=== PATIENT | male | born 1985 | race Caucasian/White ===

== ENCOUNTER 2017-07-19 16:41 | Emergency (ER) | payer SELFPAY ==
[~2017-07-19] VITALS: Ht 170.2 cm; Wt 94.9 kg
[~2017-07-19 16:41] MED LIST: AMOXICILLIN500 MG PO; BACTRIM DS1 TAB PO; CELEXA20 MG PO; CEPHALEXIN500 MG PO; DOXYCYCL HYC100 M4 PO; KLONOPIN1 MG PO; LITHIUM CARB300 MG PO; LORTAB 10 PO; NAPROXEN375 MG PO; NO; ULTRAM50 MG OR; ZOFRAN4 MG/TAB PO
[2017-07-19 17:40] LABS: HEMATOCRIT 47.9 % (39.0-50.0); HEMOGLOBIN 16.4 g/dl (14.0-18.0); IMMATURE GRANULOCYTES 0.5 % (0.0-1.0); MEAN CELL VOLUME 87.2 fL CALC (80.0-100.0); MEAN CORPUSCULAR HGB 29.9 pG CALC (26.0-32.0); MEAN CORPUSCULAR HGB CONC 34.2 g/L CALC (32.0-36.0); NEUT# 7.68 thou/uL (1.82-7.42); RED BLOOD COUNT 5.49 mill/uL (4.70-6.10); RED CELL DISTRI WIDTH 12.4 % (11.5-15.5)
[2017-07-19 17:51] LABS: ALBUMIN 4.5 g/dL (3.2-5.0); ALKALINE PHOSPHATASE 57 u/l (38-126); ANION GAP 18 (6-22 (CALC)); BILIRUBIN, TOTAL 0.9 mg/dL (0.0-1.4); BUN 22 mg/dL (9-20); BUN/CREATININE RATIO 23 (12-20 (CALC)); CALCIUM 9.4 mg/dL (8.4-10.2); CARBON DIOXIDE 22 mmol/l (22-30); CHLORIDE 103 mmol/l (95-108); GFR > 60 ML/MIN (>=60 (CALC)); GFR FOR AFR.AMER. > 60 ML/MIN (>=60 (CALC)); GLUCOSE 84 mg/dL (75-110); POTASSIUM 4.1 mmol/l (3.5-5.1); SGOT/AST 31 u/l (17-59); SGPT/ALT 54 u/l (21-72); SODIUM 139 mmol/l (137-146)
[2017-07-19] MEDS ORDERED: BENTYL20 MG PO (18:12)
[2017-07-19] MEDS ORDERED: ZOFRAN4 MG/TAB PO (18:12)
[2017-07-19 18:32] VITALS: BP 116/64
== END 2017-07-19 18:32 | disposition home or self-care (01) | DRG 392 ==
LOC: ED 16:41
PROVIDERS: Emergency Medicine
DX: K52.9 Noninfective gastroenteritis and colitis, unspecified (principal); R10.84 Generalized abdominal pain; R11.2 Nausea with vomiting, unspecified; R50.9 Fever, unspecified

== ENCOUNTER 2017-09-18 17:21 | Emergency (ER) | payer MEDICAID ==
[~2017-09-18] VITALS: Ht 170.2 cm; Wt 94.8 kg
[~2017-09-18 17:21] MED LIST changes: +BENTYL20 MG PO
[2017-09-18] MEDS ORDERED: ORPHENADRINE100 MG PO (20:14)
[2017-09-18] MEDS ORDERED: ULTRAM50 M1 PO (20:14)
[2017-09-18 20:38] VITALS: BP 128/82
== END 2017-09-18 20:37 | disposition home or self-care (01) | DRG 563 ==
LOC: ED 17:21
DX: S39.012A Strain of muscle, fascia and tendon of lower back, initial encounter (principal); F17.220 Nicotine dependence, chewing tobacco, uncomplicated; X50.0XXA Overexertion from strenuous movement or load, initial encounter

== ENCOUNTER 2018-03-30 19:36 | Emergency (ER) | payer SELFPAY ==
[~2018-03-30] VITALS: Ht 170.2 cm; Wt 75.2 kg
[~2018-03-30 19:36] MED LIST changes: +ORPHENADRINE100 MG PO; +ULTRAM50 M1 PO
[2018-03-30 20:32] LABS: HEMATOCRIT 46.1 % (39.0-50.0); HEMOGLOBIN 15.5 g/dl (14.0-18.0); IMMATURE GRANULOCYTES 0.4 % (0.0-5.0); MEAN CELL VOLUME 86.7 fL CALC (80.0-100.0); MEAN CORPUSCULAR HGB 29.1 pG CALC (26.0-32.0); MEAN CORPUSCULAR HGB CONC 33.6 g/L CALC (32.0-36.0); NEUT# 10.53 thou/uL (1.82-7.42); RED BLOOD COUNT 5.32 mill/uL (4.70-6.10); RED CELL DISTRI WIDTH 13.2 % (11.5-15.5)
[2018-03-30 20:42] LABS: ALBUMIN 4.7 g/dL (3.2-5.0); ALKALINE PHOSPHATASE 82 u/l (38-126); ANION GAP 18 (6-22 (CALC)); BILIRUBIN, TOTAL 0.7 mg/dL (0.0-1.4); BUN 18 mg/dL (9-20); BUN/CREATININE RATIO 15 (12-20 (CALC)); CARBON DIOXIDE 27 mmol/l (22-30); CHLORIDE 104 mmol/l (95-108); CREATININE 1.2 mg/dL (0.7-1.3); ETHYL ALCOHOL 0 mg/dl (0-30); GFR > 60 ML/MIN (>=60 (CALC)); GFR FOR AFR.AMER. > 60 ML/MIN (>=60 (CALC)); POTASSIUM 3.7 mmol/l (3.5-5.1); SGOT/AST 28 u/l (17-59); SGPT/ALT 32 u/l (21-72); SODIUM 145 mmol/l (137-146); TOTAL PROTEIN 7.9 g/dL (6.3-8.2)
[2018-03-30 20:54] LABS: MYOGLOBIN 144 ng/mL (0 - 121)
[2018-03-30 23:08] LABS: URINE BILIRUBIN - DIPSTICK NEGATIVE (NEGATIVE); URINE BLOOD DIPSTICK NEGATIVE (NEGATIVE); URINE COLOR YELLOW; URINE GLUCOSE - DIPSTICK NEGATIVE (NEGATIVE); URINE KETONE NEGATIVE (NEGATIVE); URINE LEUK ESTERASE NEGATIVE (NEGATIVE); URINE NITRITE - DIPSTICK NEGATIVE (Negative); URINE PROTEIN - DIPSTICK TRACE mg/dL (NEG-TRACE); URINE SPECIFIC GRAVITY >=1.030; URINE UROBILINOGEN - DIPSTICK 0.2 E.U./dL (0.2)
[2018-03-30 23:11] LABS: COCAINE NEGATIVE (NEGATIVE); TETRAHYDROCANNABIONOL NEGATIVE (NEGATIVE); URINE CLARITY CLEAR
[2018-03-30 23:12] LABS: BARBITURATES NEGATIVE (NEGATIVE); METHADONE NEGATIVE (NEGATIVE); OXCYCODONE NEGATIVE (NEGATIVE); TRICYLIC ANTIDEPRESSANTS NEGATIVE (NEGATIVE)
[2018-03-31 01:39] LABS: MYOGLOBIN 124 ng/mL (0 - 121)
[2018-03-31 02:40] VITALS: BP 137/78
== END 2018-03-31 02:40 | disposition designated cancer center or children's hospital (05) | DRG 885 ==
LOC: ED 19:36
PROVIDERS: Emergency Medicine
DX: F29 Unspecified psychosis not due to a substance or known physiological condition (principal); F19.10 Other psychoactive substance abuse, uncomplicated; F20.0 Paranoid schizophrenia; F17.210 Nicotine dependence, cigarettes, uncomplicated; Z91.14 Patient's other noncompliance with medication regimen
CPT/HCPCS: J2060

== ENCOUNTER 2018-03-31 06:37 | Emergency (ER) | payer SELFPAY ==
[~2018-03-31] VITALS: Ht 170.2 cm; Wt 85.0 kg
--- NOTE | 2018-03-31 07:54 | NUR ---
CM received a call from ED staff regarding the patient under the [employer] Act and the need for CM assistance in placement to [facility]. CM advised a call will go out to [facility] to ascertain acceptance.
--- NOTE | 2018-03-31 09:02 | NUR ---
LADONNA placed a call to [facility] Wilton Sanchez regarding the current issue. advised she will speak with her Director of [facility] Geeta and investigate and call back. LADONNA provided the direct office number [phone] and personal cell [phone] for the call back. LADONNA further advised that [facility] is on the hook for the transport fee from [facility] and that [facility] should be responsible for the charge. Mrs. Sanchez stated they will pay the bill should her investigation determine that [facility] made the mistake. LADONNA reiterated the agreement that came into force in June 2017 and has been followed since that time. LADONNA voiced appreciation for her time and ended the call. Nursing for the ED made aware.
[2018-03-31 09:52] VITALS: BP 140/91
== END 2018-03-31 09:52 | disposition designated cancer center or children's hospital (05) | DRG 897 ==
LOC: ED 06:37
DX: F15.10 Other stimulant abuse, uncomplicated (principal); F20.0 Paranoid schizophrenia; F17.210 Nicotine dependence, cigarettes, uncomplicated

== ENCOUNTER 2021-04-17 05:44 | Emergency (ER) | payer SELFPAY ==
[~2021-04-17] VITALS: Ht 170.2 cm; Wt 81.0 kg
[2021-04-17 06:47] LABS: URINE BILIRUBIN - DIPSTICK NEGATIVE (NEGATIVE); URINE BLOOD DIPSTICK NEGATIVE (NEGATIVE); URINE COLOR YELLOW; URINE GLUCOSE - DIPSTICK NEGATIVE (NEGATIVE); URINE KETONE NEGATIVE (NEGATIVE); URINE LEUK ESTERASE NEGATIVE (NEGATIVE); URINE PH 6.5 (4.5-8.0); URINE PROTEIN - DIPSTICK NEGATIVE (NEG-TRACE); URINE SPECIFIC GRAVITY <=1.005; URINE UROBILINOGEN - DIPSTICK 0.2 E.U./dL (0.2)
[2021-04-17 06:48] LABS: URINE NITRITE - DIPSTICK POSITIVE (Negative)
[2021-04-17 06:57] LABS: URINE BACTERIA FEW hpf; URINE RBC 0-2 RBC/hpf (0-5); URINE SQUAMOUS EPITHELIAL CELL FEW EPI/hpf (0-FEW)
[2021-04-17 07:32] LABS: HEMATOCRIT 49.4 % (39.0-50.0); HEMOGLOBIN 16.1 g/dl (14.0-18.0); IMMATURE GRANULOCYTES 0.6 % (0.0-5.0); MEAN CORPUSCULAR HGB CONC 32.6 g/dL CAL (32.0-36.0); NEUT# 8.41 thou/uL (1.82-7.42); RED BLOOD COUNT 5.37 mill/uL (4.70-6.10); RED CELL DISTRI WIDTH 12.3 % (11.5-15.5)
[2021-04-17 07:57] LABS: ALBUMIN 4.8 g/dL (3.2-5.0); ALKALINE PHOSPHATASE 76 u/l (38-126); AMYLASE 35 u/l (30-110); BUN 16 mg/dL (9-20); BUN/CREATININE RATIO 18 (12-20 (CALC)); CARBON DIOXIDE 24 mmol/l (22-30); CHLORIDE 99 mmol/l (95-108); CREATININE 0.9 mg/dL (0.7-1.3); GFR > 60 ML/MIN (>=60 (CALC)); GFR FOR AFR.AMER. > 60 ML/MIN (>=60 (CALC)); LIPASE 107 u/l (23-300); SGOT/AST 29 u/l (17-59); TOTAL PROTEIN 7.8 g/dL (6.3-8.2)
[2021-04-17 07:59] LABS: ANION GAP 17 (6-22 (CALC)); SODIUM 136 mmol/l (137-146)
[2021-04-17 08:51] VITALS: BP 123/79
== END 2021-04-17 09:02 | disposition home or self-care (01) | DRG 392 ==
LOC: ED 05:44
PROVIDERS: Family Medicine
DX: R10.84 Generalized abdominal pain (principal); F20.0 Paranoid schizophrenia; F32.9 Major depressive disorder, single episode, unspecified; F17.210 Nicotine dependence, cigarettes, uncomplicated; T43.506A Underdosing of unspecified antipsychotics and neuroleptics, initial encounter; T43.206A Underdosing of unspecified antidepressants, initial encounter; Z91.128 Patient's intentional underdosing of medication regimen for other reason; Z77.123 Contact with and (suspected) exposure to radon and other naturally occurring radiation

== ENCOUNTER 2021-06-25 16:45 | Emergency (ER) | payer SELFPAY ==
[~2021-06-25] VITALS: Ht 170.2 cm; Wt 81.8 kg
[2021-06-25] MEDS ORDERED: NAPROXEN500 MG PO (17:27)
[2021-06-25 18:21] VITALS: BP 137/84
== END 2021-06-25 18:17 | disposition home or self-care (01) | DRG 605 ==
LOC: ED 16:45
DX: S60.221A Contusion of right hand, initial encounter (principal); F17.210 Nicotine dependence, cigarettes, uncomplicated; Y04.0XXA Assault by unarmed brawl or fight, initial encounter; Y92.149 Unspecified place in prison as the place of occurrence of the external cause

== ENCOUNTER 2021-08-29 21:26 | Emergency (ER) | payer SELFPAY ==
[~2021-08-29] VITALS: Ht 177.8 cm; Wt 72.0 kg
[~2021-08-29 21:26] MED LIST changes: +NAPROXEN500 MG PO
[2021-08-29 21:58] LABS: HEMATOCRIT 47.6 % (39.0-50.0); IMMATURE GRANULOCYTES 0.2 % (0.0-5.0); MEAN CELL VOLUME 89.6 fL CALC (80.0-100.0); MEAN CORPUSCULAR HGB 30.1 pG CALC (26.0-32.0); MEAN CORPUSCULAR HGB CONC 33.6 g/dL CAL (32.0-36.0); NEUT# 3.44 thou/uL (1.82-7.42); RED BLOOD COUNT 5.31 mill/uL (4.70-6.10); RED CELL DISTRI WIDTH 11.9 % (11.5-15.5)
[2021-08-29 22:14] LABS: ALBUMIN 4.6 g/dL (3.2-5.0); ALKALINE PHOSPHATASE 58 u/l (38-126); BILIRUBIN, TOTAL 0.6 mg/dL (0.0-1.4); BUN 18 mg/dL (9-20); BUN/CREATININE RATIO 23 (12-20 (CALC)); CHLORIDE 101 mmol/l (95-108); CREATININE 0.8 mg/dL (0.7-1.3); GFR > 60 ML/MIN (>=60 (CALC)); GFR FOR AFR.AMER. > 60 ML/MIN (>=60 (CALC)); POTASSIUM 3.6 mmol/l (3.5-5.1); SGOT/AST 33 u/l (17-59); SODIUM 140 mmol/l (137-146); TOTAL PROTEIN 7.7 g/dL (6.3-8.2)
[2021-08-29 22:15] LABS: ANION GAP 13 (6-22 (CALC)); CARBON DIOXIDE 30 mmol/l (22-30)
[2021-08-30 00:19] LABS: URINE BILIRUBIN - DIPSTICK NEGATIVE (NEGATIVE); URINE BLOOD DIPSTICK NEGATIVE (NEGATIVE); URINE COLOR YELLOW; URINE GLUCOSE - DIPSTICK NEGATIVE (NEGATIVE); URINE KETONE NEGATIVE (NEGATIVE); URINE LEUK ESTERASE NEGATIVE (NEGATIVE); URINE PROTEIN - DIPSTICK 30 mg/dL (NEG-TRACE); URINE SPECIFIC GRAVITY 1.025; URINE UROBILINOGEN - DIPSTICK 0.2 E.U./dL (0.2)
[2021-08-30 00:20] LABS: URINE NITRITE - DIPSTICK NEGATIVE (Negative)
[2021-08-30 00:23] LABS: URINE BACTERIA FEW hpf; URINE EPITHELIAL CELLS FEW EPI/hpf (0-FEW); URINE RBC 0-2 RBC/hpf (0-5)
[2021-08-30 08:07] VITALS: BP 136/81
== END 2021-08-30 08:07 | disposition home or self-care (01) | DRG 880 ==
LOC: ED 21:26
PROVIDERS: Emergency Medicine
DX: F41.9 Anxiety disorder, unspecified (principal); F19.10 Other psychoactive substance abuse, uncomplicated; F20.0 Paranoid schizophrenia; F17.200 Nicotine dependence, unspecified, uncomplicated

== ENCOUNTER 2021-12-20 01:48 | Emergency (ER) | payer SELFPAY ==
[~2021-12-20] VITALS: Ht 25.4 cm; Wt 72.7 kg
[2021-12-20 02:30] LABS: IMMATURE GRANULOCYTES 0.3 % (0.0-5.0); MEAN CELL VOLUME 90.1 fL CALC (80.0-100.0); MEAN CORPUSCULAR HGB 30.7 pG CALC (26.0-32.0); MEAN CORPUSCULAR HGB CONC 34.1 g/dL CAL (32.0-36.0); NEUT# 4.41 thou/uL (1.82-7.42); RED BLOOD COUNT 4.56 mill/uL (4.70-6.10)
[2021-12-20 02:31] LABS: HEMATOCRIT 41.1 % (39.0-50.0)
[2021-12-20 02:44] LABS: ALBUMIN 4.3 g/dL (3.2-5.0); ALKALINE PHOSPHATASE 53 u/l (38-126); AMYLASE 30 u/l (30-110); ANION GAP 14 (6-22 (CALC)); BILIRUBIN, TOTAL 0.7 mg/dL (0.0-1.4); BUN 24 mg/dL (9-20); BUN/CREATININE RATIO 26 (12-20 (CALC)); CARBON DIOXIDE 28 mmol/l (22-30); CHLORIDE 100 mmol/l (95-108); CREATININE 0.9 mg/dL (0.7-1.3); GFR > 60 ML/MIN (>=60 (CALC)); GFR FOR AFR.AMER. > 60 ML/MIN (>=60 (CALC)); LIPASE 92 u/l (23-300); POTASSIUM 3.2 mmol/l (3.5-5.1); SGOT/AST 35 u/l (17-59); SODIUM 139 mmol/l (137-146); TOTAL PROTEIN 6.9 g/dL (6.3-8.2)
[2021-12-20 02:56] LABS: MYOGLOBIN 127 ng/mL (0 - 121)
[2021-12-20] MEDS ORDERED: ONDANSETRON4 MG PO (03:44)
[2021-12-20 03:48] VITALS: BP 108/71
== END 2021-12-20 04:00 | disposition home or self-care (01) | DRG 897 ==
LOC: ED 01:48
PROVIDERS: Emergency Medicine
DX: F19.10 Other psychoactive substance abuse, uncomplicated (principal); F41.9 Anxiety disorder, unspecified; F17.200 Nicotine dependence, unspecified, uncomplicated

== ENCOUNTER 2022-01-03 21:32 | Emergency (ER) | payer SELFPAY ==
[~2022-01-03] VITALS: Ht 175.3 cm; Wt 80.0 kg
[~2022-01-03 21:32] MED LIST changes: +ONDANSETRON4 MG PO
[2022-01-03 21:39] VITALS: BP 96/41
[2022-01-03 21:45] VITALS: BP 104/69
[2022-01-03 22:00] VITALS: BP 106/73
[2022-01-03 22:15] VITALS: BP 102/67
[2022-01-03] MEDS ORDERED: LORTAB 1010 MG PO (22:22)
[2022-01-03] MEDS ORDERED: BACTRIM DS1 TAB PO (22:22)
[2022-01-03 22:30] VITALS: BP 103/69
== END 2022-01-03 22:48 | disposition home or self-care (01) | DRG 605 ==
LOC: ED 21:32
PROC: 0HQGXZZ Repair Left Hand Skin, External Approach (ICD-10-PCS; principal; 2022-01-03)
DX: S61.012A Laceration without foreign body of left thumb without damage to nail, initial encounter (principal); F17.210 Nicotine dependence, cigarettes, uncomplicated; W26.0XXA Contact with knife, initial encounter; Y93.G1 Activity, food preparation and clean up; Y92.009 Unspecified place in unspecified non-institutional (private) residence as the place of occurrence of the external cause

== ENCOUNTER 2022-02-02 22:40 | Emergency (ER) | payer SELFPAY ==
[~2022-02-02] VITALS: Ht 175.3 cm; Wt 80.0 kg
[~2022-02-02 22:40] MED LIST changes: +LORTAB 1010 MG PO
[2022-02-02 22:55] VITALS: BP 120/81
[2022-02-02 23:00] VITALS: BP 123/87
[2022-02-02 23:30] VITALS: BP 120/89
[2022-02-02 23:36] LABS: HEMATOCRIT 43.6 % (39.0-50.0); HEMOGLOBIN 14.6 g/dl (14.0-18.0); IMMATURE GRANULOCYTES 0.1 % (0.0-5.0); MEAN CELL VOLUME 90.8 fL CALC (80.0-100.0); MEAN CORPUSCULAR HGB 30.4 pG CALC (26.0-32.0); MEAN CORPUSCULAR HGB CONC 33.5 g/dL CAL (32.0-36.0); NEUT# 3.89 thou/uL (1.82-7.42); RED BLOOD COUNT 4.8 mill/uL (4.70-6.10); RED CELL DISTRI WIDTH 12.5 % (11.5-15.5)
[2022-02-02 23:53] LABS: ALBUMIN 4.5 g/dL (3.2-5.0); ALKALINE PHOSPHATASE 59 u/l (38-126); ANION GAP 12 (6-22 (CALC)); BILIRUBIN, TOTAL 0.7 mg/dL (0.0-1.4); BUN 17 mg/dL (9-20); BUN/CREATININE RATIO 18 (12-20 (CALC)); CARBON DIOXIDE 25 mmol/l (22-30); CHLORIDE 104 mmol/l (95-108); CREATININE 0.9 mg/dL (0.7-1.3); GFR FOR AFR.AMER. > 60 ML/MIN (>=60 (CALC)); GFR OTHER RACES > 60 ML/MIN (>=60 (CALC)); POTASSIUM 3.6 mmol/l (3.5-5.1); SGOT/AST 36 u/l (17-59); SODIUM 138 mmol/l (137-146); TOTAL PROTEIN 7.3 g/dL (6.3-8.2)
[2022-02-03] VITALS: BP 114/88
[2022-02-03] MEDS ORDERED: BACTRIM DS1 TAB PO (00:21)
[2022-02-03 00:30] VITALS: BP 124/75
[2022-02-03 01:00] VITALS: BP 114/76
[2022-02-03 01:30] VITALS: BP 115/81
[2022-02-03 02:00] VITALS: BP 115/81
[2022-02-03 02:26] VITALS: BP 115/81
== END 2022-02-03 03:00 | disposition home or self-care (01) | DRG 880 ==
LOC: ED 22:40
PROVIDERS: Emergency Medicine
DX: F41.9 Anxiety disorder, unspecified (principal); L03.116 Cellulitis of left lower limb; L03.115 Cellulitis of right lower limb; F20.0 Paranoid schizophrenia; F17.210 Nicotine dependence, cigarettes, uncomplicated; F17.290 Nicotine dependence, other tobacco product, uncomplicated; Z20.822 Contact with and (suspected) exposure to COVID-19

== ENCOUNTER 2022-02-21 18:50 | Emergency (ER) | payer SELFPAY ==
[~2022-02-21] VITALS: Ht 175.3 cm; Wt 68.0 kg
[2022-02-21 19:25] LABS: IMMATURE GRANULOCYTES 0.2 % (0.0-5.0); MEAN CELL VOLUME 91.5 fL CALC (80.0-100.0); MEAN CORPUSCULAR HGB 30.5 pG CALC (26.0-32.0); MEAN CORPUSCULAR HGB CONC 33.3 g/dL CAL (32.0-36.0); NEUT# 3.45 thou/uL (1.82-7.42); RED CELL DISTRI WIDTH 13.2 % (11.5-15.5)
[2022-02-21 19:38] LABS: HEMATOCRIT 36.6 % (39.0-50.0); HEMOGLOBIN 12.2 g/dl (14.0-18.0)
[2022-02-21 19:39] LABS: ALBUMIN 3.5 g/dL (3.2-5.0); ALKALINE PHOSPHATASE 44 u/l (38-126); ANION GAP 10 (6-22 (CALC)); BILIRUBIN, TOTAL 0.1 mg/dL (0.0-1.4); BUN 14 mg/dL (9-20); BUN/CREATININE RATIO 19 (12-20 (CALC)); CARBON DIOXIDE 28 mmol/l (22-30); CHLORIDE 106 mmol/l (95-108); CREATININE 0.7 mg/dL (0.7-1.3); ETHYL ALCOHOL 61 mg/dl (0-30); GFR FOR AFR.AMER. > 60 ML/MIN (>=60 (CALC)); GFR OTHER RACES > 60 ML/MIN (>=60 (CALC)); MAGNESIUM 1.9 mg/dL (1.6-2.3); POTASSIUM 3.2 mmol/l (3.5-5.1); SGOT/AST 21 u/l (17-59); SODIUM 141 mmol/l (137-146); TOTAL PROTEIN 5.8 g/dL (6.3-8.2)
[2022-02-21 20:59] LABS: URINE BILIRUBIN - DIPSTICK NEGATIVE (NEGATIVE); URINE BLOOD DIPSTICK NEGATIVE (NEGATIVE); URINE COLOR YELLOW; URINE GLUCOSE - DIPSTICK NEGATIVE (NEGATIVE); URINE KETONE NEGATIVE (NEGATIVE); URINE LEUK ESTERASE NEGATIVE (NEGATIVE); URINE PROTEIN - DIPSTICK 30 mg/dL (NEG-TRACE); URINE SPECIFIC GRAVITY >=1.030; URINE UROBILINOGEN - DIPSTICK 0.2 E.U./dL (0.2)
[2022-02-21 21:03] LABS: URINE NITRITE - DIPSTICK NEGATIVE (Negative)
[2022-02-21 21:14] LABS: URINE CALCIUM OXALATE CRYSTALS MANY lpf; URINE MUCUS FEW hpf (NONE-FEW); URINE SQUAMOUS EPITHELIAL CELL FEW EPI/hpf (0-FEW)
[2022-02-21 22:21] VITALS: BP 110/70
== END 2022-02-21 22:23 | disposition designated cancer center or children's hospital (05) | DRG 880 ==
LOC: ED 18:50
PROVIDERS: Family Medicine
DX: R45.851 Suicidal ideations (principal); F19.10 Other psychoactive substance abuse, uncomplicated; F20.0 Paranoid schizophrenia; F17.200 Nicotine dependence, unspecified, uncomplicated; Z20.822 Contact with and (suspected) exposure to COVID-19